=== PATIENT | female | born 1940 | race Caucasian/White ===

== ENCOUNTER 2020-07-06 15:54 | Inpatient (IN) | payer MEDICARE, BC ==
[~2020-07-06] VITALS: Ht 165.1 cm; Wt 54.0 kg
[~2020-07-06 15:54] MED LIST: ALPR0.25 PO; ALPR0.5T PO; ASCO-352 PO; CALC500T89 PO; CARB-93 PO; CARB-95 PO; ESCI10TA PO; METO25TA6 PO; QUET25TA PO; SERT25TA PO; TRAZ-182 PO
--- NOTE | 2020-07-06 16:10 | NUR ---
PT came to ER, brought by caregiver from home with c/o left hip and thigh pain x 3 weeks and lower back pain strated this morning. pt aler and oriented 1 with confusion and disorientation. able to follow commands. able to ambulate with walker. awaiting for MD phillips
--- NOTE | 2020-07-06 16:30 | NUR ---
offered urine collection. per caregiver, pt is incontinent and unable to collect at this time. will offer again later
--- NOTE | 2020-07-06 16:52 | NUR ---
PT OUT FOR CT
--- NOTE | 2020-07-06 17:07 | NUR ---
STILL UNABLE TO COLLECT URINE AT THIS TIME. WILL INFORM
--- NOTE | 2020-07-06 17:16 | NUR ---
unable to collect urine. MD brink aware
--- NOTE | 2020-07-06 17:44 | NUR ---
CALLED DR. WEST AT [facility] [phone]
--- NOTE | 2020-07-06 18:10 | NUR ---
iv line established. blood drawn and sent to lab
[2020-07-06 18:15] LABS: BASOPHILS % (AUTO) 0.3 % (0.0-2.0); EOSINOPHILS % (AUTO) 2.5 % (0.0-6.0); HEMATOCRIT 38 % (33-45); HEMOGLOBIN 12.5 g/dL (11.5-14.8); LYMPHOCYTES # (AUTO) 1.1 /CMM (0.8-4.8); LYMPHOCYTES % (AUTO) 13.3 % (20.0-44.0); MEAN CORPUSCULAR HGB CONC 33 g/dl (31.0-36.0); MEAN CORPUSCULAR VOLUME 102 fL (82-100); MONOCYTES # (AUTO) 0.8 /CMM (0.1-1.30); MONOCYTES % (AUTO) 9.3 % (2.0-12.0); NEUTROPHILS # (AUTO) 6.4 /CMM (1.8-8.9); NEUTROPHILS % (AUTO) 74.6 % (43.0-81.0); PLATELET COUNT (AUTO) 228 /CMM (150-450); WHITE BLOOD COUNT (AUTO) 8.6 K/uL (4.3-11.0)
[2020-07-06 18:24] LABS: CALCIUM, SERUM 9.3 mg/dL (8.5-10.1); POTASSIUM 3.6 mmol/L (3.5-5.1)
--- NOTE | 2020-07-06 18:40 | NUR ---
paged panel precision lens centerer and edger for admission
[2020-07-06] MEDS ORDERED: CHOL100040 PO (18:41)
[2020-07-06] MEDS ORDERED: BUPR100T6 PO (18:41)
[2020-07-06] MEDS ORDERED: GABA-532 PO (18:41)
[2020-07-06] MEDS ORDERED: SENN1TAB33 PO (18:41)
[2020-07-06] MEDS ORDERED: PARO10TA86 PO (18:41)
[2020-07-06] MEDS ORDERED: METO25TA4 PO (18:41)
[2020-07-06] MEDS ORDERED: LOSA50TA39 PO (18:41)
[2020-07-06] MEDS ORDERED: MELO7.5T12 PO (18:41)
--- NOTE | 2020-07-06 19:20 | NUR ---
COVID TEST DONE & SENT TO LAB.
[2020-07-06] MEDS ORDERED: ACETAMINOPHEN 325 MG TABLET PO PRN (19:30)
[2020-07-06] MEDS ORDERED: MAG HYDROX/AL HYDROX/SIMETH 30 ML UDC PO PRN (19:30)
[2020-07-06] MEDS ORDERED: Z GUARD REMEDY 2 OZ OINT TP PRN (19:30)
[2020-07-06] MEDS ORDERED: MORPHINE SULFATE INJ 2 MG/ML DISP.SYRIN IV PRN (19:30)
[2020-07-06] MEDS ORDERED: ONDANSETRON HCL/PF 4 MG/2 ML VIAL IVP PRN (19:30)
[2020-07-06] MEDS ORDERED: MAGNESIUM HYDROXIDE 30 ML UDC PO PRN (19:30)
[2020-07-06] MEDS ORDERED: MELOXICAM 7.5 MG TABLET PO PRN (19:30)
[2020-07-06] MEDS ORDERED: ENALAPRILAT INJ (1.25 MG/ML) 1.25 MG/ML VIAL IV STA (20:23)
[2020-07-06] MEDS ORDERED: ENALAPRILAT INJ (1.25 MG/ML) 1.25 MG/ML VIAL IV ONE (20:25)
[2020-07-06] MEDS ORDERED: hydrALAZINE HCL IV 20 MG VIAL IV ONE (20:30)
--- NOTE | 2020-07-06 20:31 | NUR ---
MEDICATED FOR ELEVATED BP PER ERMD ORDER, PT FRANK WELL.
--- NOTE | 2020-07-06 20:35 | NUR ---
CALL FROM LAB, RAPID COVID NEGATIVE.
--- NOTE | 2020-07-06 21:47 | NUR ---
REPORT GIVEN TO SANDRA MEDEL FOR TRIXIE.
[2020-07-06 22:00] VITALS: BP 187/100
--- NOTE | 2020-07-06 22:00 | NUR ---
MS/TELE/RN RECEIVE PATIENT FROM . VIA [facility] ADMITTED FOR LEFT HIP FRACTURE. PATIENT IS AWAKE, ALERT, ORIENTED X 1, WITH CONFUSION, NO C/O PAIN, NO SIGNS OF DISTRESS NOTED, ADMISSION DONE, UNABLE TO OBTAIN INFORMATIONS FROM THE PATIENT DUE TO MENTAL STATUS, PHYSICAL ASSESSMENT DONE, TAUGHT THE USE OF CALL LIGHT, PLACED IT AT BEDSIDE WITHIN REACH, FALL PRECAUTIONS PER PROTOCOL IMPLEMENTED, WILL MONITOR.
--- NOTE | 2020-07-06 23:12 | NUR ---
MS/RDEW/RN BP 187/100, NO BP MED DUE AT THIS TIME, NO PRN BP MED, CALLED [facility] [employer] [facility], LET MESSAGE.
[2020-07-06] MEDS: PAROXETINE HCL 10 MG TABLET PO SCH (23:19)
[2020-07-06] MEDS: TRAZODONE 50 MG TABLET PO SCH (23:19)
[2020-07-06] MEDS: CARBIDOPA/LEVA CR 25/100MG 1 TAB.SA PO SCH (23:20)
[2020-07-07] VITALS: BP 148/80
--- NOTE | 2020-07-07 00:02 | NUR ---
MS/TELE/RN DR. SEGUNDO CALLED AT 2325, INFORMED HIM ABOUT THE BP 187/100, PER DR. SEGUNDO, CHECK THE BP MANUALLY, IF SBP > 160, GIVE HYDRALZINE 25 MG PO X1. CHECKED BP MANUALLY, 150/100. HYDRALAZINE NOT GIVEN. WILL CONTINUE TO MONITOR PATIENT.
--- NOTE | 2020-07-07 01:23 | NUR ---
MS/TELE/RN PATIENT IS SLEEPING AT THIS TIME, APPEAR COMFORTABLE, NO SIGNS OF DISTRESS NOTED, CALL LIGHT IN REACH. WILL CONTINUE TO MONITOR.
[2020-07-07] MEDS: HYDROCODONE/APAP 5/325MG TABLET PO PRN (02:41)
--- NOTE | 2020-07-07 06:09 | NUR ---
MS/TELE/RN PATIENT IS STILL SLEEPING AT THIS TIME, APPEAR COMFORTABLE, NO SIGNS OF DISTRESS NOTED, CALL LIGHT IN REACH, ALL NEEDS ATTENDED AT THIS TIME, WILL CONTINUE TO MONITOR.
--- NOTE | 2020-07-07 07:55 | NUR ---
RN Opening Note Received patient in bed, AO x 1 good eye contact, able to responds all stimuli, does no appears pain or discomfort. Respiratory even and unlabored on room air, no distress or SOB observed. Skin is warm to touch keep clean/dry intact IV site on left AC g 18. Kept locked bed with elevated HOB for ensure airway and aspiration precaution and lowest position for safety. Call light within reach, will continue to monitor.
[2020-07-07 08:00] VITALS: BP 168/91
--- NOTE | 2020-07-07 08:06 | NUR ---
WOUND CARE CONSULT: PT PRESENTS WITH DISCOLORATION TO LEFT HIP AND RASH TO GROIN FOLDS, BUTTOCKS AND PERINEUM, PRESENT ON ADMISSION. PT IS INCONTINENT. RECOMMENDATIONS MADE FOR SKIN PROTECTION. DISCUSSED WITH NURSING STAFF. IN AGREEMENT WITH PLAN OF CARE. Addendum: 07/07/20 at 0807 by DIPTI GARCIAS WNDNU Amended: Links added.
[2020-07-07] MEDS: GABAPENTIN 100 MG CAPSULE PO SCH ×2 (08:24→16:56)
[2020-07-07] MEDS: CHOLECALCIFEROL 1,000 UNIT TABLET (VIT D3) PO SCH (08:24)
[2020-07-07] MEDS: METOPROLOL SUCCINATE 25 MG TAB.SR.24H PO SCH ×2 (08:25→16:56)
[2020-07-07] MEDS: LOSARTAN POTASSIUM 50 MG TABLET PO SCH (08:25)
[2020-07-07] MEDS: buPROPion SR 100 MG TABLET.ER PO SCH (08:26)
[2020-07-07] MEDS ORDERED: SENNOSIDES/DOCUSATE SODIUM 1 UDTAB TABLET PO SCH (09:00)
--- NOTE | 2020-07-07 09:35 | NUR ---
Patient Dx left hip fx, received order insert rubio catheter. Noted and carry out.
[2020-07-07] MEDS: ENOXAPARIN SODIUM 40 MG/0.4 ML DISP.SYRIN SQ SCH (11:00)
[2020-07-07] MEDS: CLOTRIMAZOLE 1% 15 GM TUBE TP SCH ×2 (11:37→17:21)
[2020-07-07] MEDS: SENNOSIDES/DOCUSATE SODIUM 1 TAB TABLET PO SCH ×2 (11:45→16:55)
--- NOTE | 2020-07-07 12:55 | NUR ---
Patient going procedure for left hip, will hold Lovenox.
[2020-07-07] MEDS: CARBIDOPA/LEVODOPA 25/100 MG 1 UDTAB PO SCH ×2 (12:59→16:55)
--- NOTE | 2020-07-07 13:30 | NUR ---
Patient Daughter/Amparo wants to talk MD, given DTR's number to Dr. Conrad who will call to DTR.
[2020-07-07 15:31] VITALS: BP 130/76
[2020-07-07 15:40] VITALS: BP 130/76
[2020-07-07 17:44] LABS: CALCIUM, SERUM 9.2 mg/dL (8.5-10.1); CREATININE 0.9 mg/dL (0.6-1.3); MAGNESIUM 2.1 mg/dL (1.8-2.4); PHOSPHORUS 2.8 mg/dL (2.5-4.9)
--- NOTE | 2020-07-07 17:45 | NUR ---
RN Closing note Patient in bed resting, does no appears discomfort, skin is warm to touch keep clean/dry, intact IV site on left AC g 18 with SL. Respiratory even and unlabored on room air O2sat 95%, no sob or distress observed. Kept locked bed and elevated HOB for ensure airway and aspiration precaution, and lowest position for safety, call light within reach, will endorse business services intern. DTR/Amparo called x 2-3 times wants talk MD and informed x 2.
--- NOTE | 2020-07-07 19:30 | NUR ---
MSRN FULLY AWAKE, PLEASANTLY CONFUSE. VERBALIZING LEFT HIP PAIN, SITE BRUISED. REPOSITIONED. ADAN TO GRAVITY OUTPUT MONITORED, ALL NEEDS ATTENDED, KEPT COMFORTABLE.
[2020-07-07 19:39] LABS: BASOPHILS % (AUTO) 0.3 % (0.0-2.0); EOSINOPHILS % (AUTO) 2.3 % (0.0-6.0); HEMATOCRIT 38 % (33-45); HEMOGLOBIN 12.7 g/dL (11.5-14.8); LYMPHOCYTES # (AUTO) 1.9 /CMM (0.8-4.8); LYMPHOCYTES % (AUTO) 29.1 % (20.0-44.0); MEAN CORPUSCULAR HGB CONC 33 g/dl (31.0-36.0); MEAN CORPUSCULAR VOLUME 101 fL (82-100); MONOCYTES # (AUTO) 0.7 /CMM (0.1-1.30); MONOCYTES % (AUTO) 11.4 % (2.0-12.0); NEUTROPHILS # (AUTO) 3.7 /CMM (1.8-8.9); NEUTROPHILS % (AUTO) 56.9 % (43.0-81.0); PLATELET COUNT (AUTO) 222 /CMM (150-450); RED BLOOD CELL COUNT(AUTO) 3.79 MIL/uL (4.0-5.2); WHITE BLOOD COUNT (AUTO) 6.5 K/uL (4.3-11.0)
--- NOTE | 2020-07-07 19:50 | NUR ---
MSRN SLEEPING AT THIS TIME. NO PAIN MED FOR NOW. WILL MONITOR.
[2020-07-07 20:00] VITALS: BP 116/64
--- NOTE | 2020-07-07 20:40 | NUR ---
MSRN REPORT GIVEN TO RN, FOR CONTINUITY OF CARE.
[2020-07-07 20:45] VITALS: BP 116/64
--- NOTE | 2020-07-07 20:45 | NUR ---
rn ms opening notes received patient from [facility] for continuity of care, patient in bed sleeping easily arousable, alert and oriented x1, respirations even and unlabored with equal rise and fall of chest , denies any gary or discomfort at this time, rubio catheter intact and draining, urine yellow, left ac #18g noted leaking will insert new iv site, heels offloaded patient repositioned, skin assessed slight redness to sacral area, wound care done as ordered, left hip bruise noted and offloaded, vs wnl,. oriented to staff and call light and kept within reach, all needs attended at this time, will continue to monitor and attend to needs.
[2020-07-07] MEDS: TRAZODONE 50 MG TABLET PO SCH (21:28)
[2020-07-07] MEDS: CARBIDOPA/LEVA CR 25/100MG 1 TAB.SA PO SCH (21:29)
[2020-07-07] MEDS: PAROXETINE HCL 10 MG TABLET PO SCH (21:30)
[2020-07-08 06:04] LABS: BASOPHILS % (AUTO) 0.5 % (0.0-2.0); EOSINOPHILS % (AUTO) 2.8 % (0.0-6.0); HEMATOCRIT 37 % (33-45); HEMOGLOBIN 12.4 g/dL (11.5-14.8); LYMPHOCYTES # (AUTO) 1.5 /CMM (0.8-4.8); LYMPHOCYTES % (AUTO) 24.4 % (20.0-44.0); MEAN CORPUSCULAR HGB CONC 34 g/dl (31.0-36.0); MEAN CORPUSCULAR VOLUME 101 fL (82-100); MONOCYTES # (AUTO) 0.8 /CMM (0.1-1.30); NEUTROPHILS # (AUTO) 3.8 /CMM (1.8-8.9); NEUTROPHILS % (AUTO) 59.3 % (43.0-81.0); PLATELET COUNT (AUTO) 197 /CMM (150-450); RED BLOOD CELL COUNT(AUTO) 3.67 MIL/uL (4.0-5.2); WHITE BLOOD COUNT (AUTO) 6.3 K/uL (4.3-11.0)
[2020-07-08 06:05] LABS: CALCIUM, SERUM 9.4 mg/dL (8.5-10.1); CREATININE 1.3 mg/dL (0.6-1.3); MAGNESIUM 2.2 mg/dL (1.8-2.4); PHOSPHORUS 3.3 mg/dL (2.5-4.9); POTASSIUM 4.3 mmol/L (3.5-5.1)
--- NOTE | 2020-07-08 06:23 | NUR ---
rn ms closing notes patient in bed easily arousable, alert and oriented x1, respirations even and unlabored with equal rise and fall of chest , denies any pain or discomfort at this time, rubio catheter intact and draining, urine yellow total output 300ml, iv site site to right fa #22g intact and patent, no redness, no infiltration, heels offloaded patient repositioned, skin assessed slight redness to sacral area, wound care done as ordered, left hip bruise noted and offloaded, vs wnl throughout shift. call light kept within reach, all needs attended at this time, will continue to monitor and attend to needs and endorse to next shift.
--- NOTE | 2020-07-08 07:25 | NUR ---
MS RN NOTES PATIENT RECEIVED IN BED SLEEPING, EASILY AWAKEN BY TOUCH AND NAME. ALERT AND ORIENTED X 1. PATIENT ON ROOM AIR WITH NO SIGNS OF RESPIRATORY DISTRESS WITH EVEN NON-LABORED BREATHING, AND NO SOB NOTED. PATIENT ADAN CATHETER IN PLACE WITH CLEAR URINE OUTPUT FLOWING BY GRAVITY. IV ACCESS INTACT AND PATENT, SKIN WARM AND DRY TO TOUCH. SAFETY PRECAUTIONS IMPLEMENTED WITH BED LOCKED, BED IN THE LOWEST POSITION, BILATERAL SIDE RAILS UP, BED ALARM ON, AND CALL LIGHT WITHIN EASY REACH OF PATIENT. WILL CONTINUE TO MONITOR PATIENT.
[2020-07-08] MEDS: ENOXAPARIN SODIUM 40 MG/0.4 ML DISP.SYRIN SQ SCH (09:40)
[2020-07-08] MEDS: SENNOSIDES/DOCUSATE SODIUM 1 TAB TABLET PO SCH ×2 (09:42→17:25)
[2020-07-08] MEDS: CHOLECALCIFEROL 1,000 UNIT TABLET (VIT D3) PO SCH (09:42)
[2020-07-08] MEDS: METOPROLOL SUCCINATE 25 MG TAB.SR.24H PO SCH ×2 (09:42→17:25)
[2020-07-08] MEDS: GABAPENTIN 100 MG CAPSULE PO SCH ×2 (09:43→17:25)
[2020-07-08] MEDS: LOSARTAN POTASSIUM 50 MG TABLET PO SCH (09:45)
[2020-07-08] MEDS: buPROPion SR 100 MG TABLET.ER PO SCH (09:50)
[2020-07-08] MEDS: CLOTRIMAZOLE 1% 15 GM TUBE TP SCH ×2 (09:56→17:25)
[2020-07-08] MEDS: CARBIDOPA/LEVODOPA 25/100 MG 1 UDTAB PO SCH ×2 (12:25→17:25)
--- NOTE | 2020-07-08 12:40 | NUR ---
MS RN NOTES DUE TO PATIENT DISCHARGING INFORMED DR. CAMACHO ABOUT ADAN CATHETER, ORDERED TO REMOVE ADAN CATHETER. WILL CONTINUE TO MONITOR PATIENT.
--- NOTE | 2020-07-08 13:56 | NUR ---
SW met with the patient at bedside. Patient was alert and oriented x2 (self,place). Patient was able to report that the patient fell but patient could not provide more information. Patient repeated twice that she was getting information ready for her children. Patient was able to report to this SW that the patient has Parkinson's disease. Plan: SW will attempt to speak with Daughter Jazzmine (first contact) or daughter Mariza (second contact).
--- NOTE | 2020-07-08 15:40 | NUR ---
MS RN NOTES CALLED AND GAVE REPORT TO [facility] [phone], SPOKE WITHДМИТРИЙ. WILL CONTINUE TO MONITOR PATIENT.
[2020-07-08] MEDS: HYDROCODONE/APAP 5/325MG TABLET PO PRN (17:47)
--- NOTE | 2020-07-08 18:10 | NUR ---
MS RN NOTES PULLED OUT MORPHINE AND REMOVED CAPPED, BUT MORPHINE WAS NOT ADMINISTERED. HAD ANOTHER RN WITNESS PULLING OUT MEDICATION AND RETURNING. CALLED AND CLARIFIED WITH PHARMACY AND THEY STATED THE MEDICATION NEEDS TO BE WASTED INSTEAD OF RETURNING. PHARMACIST CAROLA MCNAIR CAME TO RETRIEVE MEDICATION FROM RETURN BID AND STATES SHE WILL WASTE MORPHINE 2mg/mL IN THE PHARMACY.
--- NOTE | 2020-07-08 18:56 | NUR ---
MS RN NOTES PATIENT IN ROOM RESTING COMFORTABLY, ALERT AND ORIENTED X 1-2. PATIENT ON ROOM AIR WITH NO SIGNS OF RESPIRATORY DISTRESS WITH EVEN NON-LABORED BREATHING, AND NO SOB NOTED. SKIN WARM AND DRY TO TOUCH. IV ACCESS REMOVED, IV CATHETER INTACT AND APPLIED PRESSURE TO SITE. SAFETY PRECAUTIONS IMPLEMENTED WITH BED LOCKED, BED IN THE LOWEST POSITION, BILATERAL SIDE RAILS UP, BED ALARM ON, AND CALL LIGHT WITHIN EASY REACH OF PATIENT. PATIENT INSIDE TESTER TIME WILL BE 2100, ENDORSE NIGHTSHIFT RN PLAN OF CARE.
[2020-07-08 20:09] VITALS: BP 105/49
--- NOTE | 2020-07-08 21:50 | NUR ---
MS/RN NOTE Patient discharge to SNF via ambulance. All discharge paperwork reviewed and signed by patient. VSS. No SOB or acute distress. BP 136/72. All belongings and valuables given to patient. IV site removed. ID band removed. Patient left unit at 2133.
== END 2020-07-08 21:45 | DRG 536 ==
LOC: ER 16:08 → MED 21:31
PROVIDERS: ADMIT Family Medicine
DX: S32.492A Other specified fracture of left acetabulum, initial encounter for closed fracture (principal); W19.XXXA Unspecified fall, initial encounter; F41.9 Anxiety disorder, unspecified; I25.10 Atherosclerotic heart disease of native coronary artery without angina pectoris; F32.9 Major depressive disorder, single episode, unspecified; I10 Essential (primary) hypertension; G20 Parkinson's disease; Z66 Do not resuscitate; Z85.72 Personal history of non-Hodgkin lymphomas; E16.2 Hypoglycemia, unspecified; Y93.9 Activity, unspecified; Y92.009 Unspecified place in unspecified non-institutional (private) residence as the place of occurrence of the external cause
CPT/HCPCS: 36415; 71045-TC; 73552; 73700-TC; 80048-TC; 80061-TC; 83735-TC; 84100-TC; 85025-TC; 85730-TC; 87081-TC; 93307-TC; 97112-TC; 97530-TC; C9803; G0378; J1650; J2270; J3490